=== PATIENT | female | born 1950 | race Caucasian/White ===

== ENCOUNTER 2019-05-14 09:09 | Day surgery (SDC) | payer BC ==
[~2019-05-14 09:09] MED LIST: FAMOTIDINE 20MG TABLET PO ONE; MECLIZINE 25 MG TABLET PO ONE; VANCOMYCIN 1GM/200ML PREMIX 1 GM/200 ML PIGGYBACK IVPB ONE
[2019-05-14] MEDS ORDERED: SEVOFLURANE 250 ML INH ONE (09:10)
[2019-05-14] MEDS ORDERED: FENTANYL PF 100MCG/2ML VIAL IV ONE (09:10)
[2019-05-14] MEDS ORDERED: DEXAMETHASONE 4 MG/ML 1ML VIAL IVP ONE ×2 (09:10)
[2019-05-14] MEDS ORDERED: BUPIVACAINE 0.25% MPF 30ML VIAL IVP ONE (09:10)
[2019-05-14] MEDS ORDERED: MIDAZOLAM HCL 2MG/2ML VIAL IV ONE (09:10)
[2019-05-14] MEDS ORDERED: BUPIVACAINE LIPOSOME/PF 133MG/10ML VIAL IV ONE (09:10)
[2019-05-14] MEDS ORDERED: LIDOCAINE 2% MDV (20MG/ML) 20ML VIAL IV ONE (09:10)
[2019-05-14] MEDS ORDERED: EPHEDRINE SULFATE 50 MG/ML ML IV ONE (09:10)
[2019-05-14] MEDS ORDERED: ONDANSETRON HCL IV 4 MG/2 ML VIAL IVP ONE (09:10)
[2019-05-14] MEDS ORDERED: PROPOFOL 10 MG/ML VIAL IV ONE (09:10)
[2019-05-14] MEDS ORDERED: RINGERS SOLUTION,LACTATED 1,000 ML IV ONE ×2 (09:30→12:10)
[2019-05-14] MEDS: METOCLOPRAMIDE 10 MG TABLET PO ONE ×2 (09:43)
[2019-05-14] MEDS ORDERED: EPINEPHRINE 1 MG/ML AMPUL IM ONE (11:25)
--- NOTE | 2019-05-15 13:40 | Operative Note ---
DATE OF SURGERY: 05/14/2019 PREOPERATIVE DIAGNOSES: 1. Tear of the left rotator cuff. 2. Impingement syndrome left shoulder. POSTOPERATIVE DIAGNOSES: 1. Tear of the left rotator cuff. 2. Impingement syndrome left shoulder. 3. Tear of the glenoid labrum left shoulder. OPERATION: 1. Arthroscopic repair of the left rotator cuff. 2. Arthroscopic subacromial decompression and acromioplasty of the left shoulder. 3. Arthroscopic debridement of the anterior and superior glenoid labrum left shoulder. SURGEON: Mau Kwong D.O. REFERRING PHYSICIAN: Marika Nazario M.D. ANESTHESIA: General. PROCEDURE: This 68-year-old female was taken to the operating room and placed in the supine position on the operating table. General anesthesia was induced. She was then placed in the beach-chair position with all bony prominences well padded and the head well secured. The left shoulder was prepped with Hibiclens and draped in the usual sterile fashion. A posterior portal was established in the glenohumeral joint of the left shoulder. Initial evaluation of the joint demonstrated some significant fraying of the superior and anterior glenoid labrum. An anterior portal was established and this was probed and found not to be detached from the bony glenoid. The rotating shaver and ArthroCare wand were placed in the joint and this was debrided to healthy-appearing tissue. The patient did not demonstrate any degenerative changes of the articular cartilage. The biceps tendon appeared to be normal, although there was some injection at the insertion site, but no evidence of tear. The subscapularis and glenohumeral ligaments appeared to be normal. We did identify an area of the infraspinatus tendon with longitudinal tears in the tendon, which appeared to be full thickness tears. This was marked with a suture and the endoscope was placed in the subacromial space and thorough subacromial decompression and acromioplasty were performed. There was extensive subacromial bursitis in this patient. The marker suture was easily identified and this area was debrided and was found to contain extensive calcium pyrophosphate deposition within the infraspinatus tendon. This had basically eaten a hole in the tendon attachment site and this was thoroughly debrided to healthy-appearing rotator cuff. The tuberosity was debrided and shaved with the rotating shaver to prepare a bed for repair of the rotator cuff. We then decided that this tear could be repaired using an Arthrex SpeedBridge technique, and we placed two 4.75 SwiveLock anchors adjacent to the articular cartilage, one at the anterior and one at the posterior margins of the tear, one containing a FiberTape and the second containing a TigerTape. These sutures were then shuttled through the rotator cuff and a single limb of each one of these sutures was grasped and placed through a 3rd SwiveLock anchor which was 5.5 mm and this was placed inferior to the anterior anchor, thus creating a double row repair. Traction was placed on the suture and the anchor was impaled and similarly the remaining 2 tails of suture were placed through a 4th 5.5 SwiveLock anchor and placed inferior to the posterior anchor. This was then impaled, the repair was seen to be satisfactory and the sutures were cut and the subacromial space irrigated and suctioned and the instruments were removed. The portals were closed with 4-0 nylon suture. Sterile dressings with an UltraSling were applied. The patient was taken to the recovery room in satisfactory condition. GROSS PATHOLOGY: This patient demonstrated a tear of the rotator cuff. There was calcific tendinitis within the infraspinatus tendon, tearing of the superior and anterior glenoid labrum was also identified and marked subacromial bursitis was also noted. [facility] NETWORKJaime
== END 2019-05-14 13:25 | disposition home or self-care (01) ==
LOC: SUR 09:09
PROVIDERS: ATTEND Orthopaedic Surgery
DX: M75.102 Unspecified rotator cuff tear or rupture of left shoulder, not specified as traumatic (principal); M75.42 Impingement syndrome of left shoulder; S43.432A Superior glenoid labrum lesion of left shoulder, initial encounter; I10 Essential (primary) hypertension; F17.210 Nicotine dependence, cigarettes, uncomplicated
CPT/HCPCS: 76942; C9290; J0171; J2405; J3370; J7120

== ENCOUNTER 2019-09-21 01:06 | Emergency (ER) | payer BC ==
--- NOTE | 2019-09-21 01:18 | Emergency Department Record ---
History of Present Illness - General Chief Complaint: Cough Stated Complaint: COLD INTO CHEST Time Seen by Provider: 09/21/19 01:14 Source: Patient Mode of Arrival: Ambulatory Limitations: No limitations - History of Present Illness Initial Comments: The patient is here due to a cough and congestion that seems to be worsening over the last week. She now is coughing up green sputum at times. The patient denies any CP, SOB, LYSSA, or fevers. She did get a flu shot a few weeks ago. MD Complaint: Cough, Nasal congestion, Rhinorrhea Onset/Timin -: Week(s) Severity: Mild - Related Data Home Medications Medication Instructions Recorded Confirmed Last Taken Amlodipine Besylate/Benazepril 1 each PO 09/21/19 Unknown [Amlodipine-Benazepril 5-10 mg] Cholecalciferol (Vitamin D3) unit PO 09/21/19 Unknown [Vitamin D3] Cyanocobalamin (Vitamin B-12) mcg PO DAILY 09/21/19 Unknown [Vitamin B-12] Hydrocodone/Acetaminophen 1 each PO BID 09/21/19 09/21/19 Unknown [Hydrocodone-Acetamin 5-325 mg] Magnesium mg PO DAILY 09/21/19 Unknown [place]-3 Fatty Acids/Fish Oil [Fish 1 each PO 09/21/19 Unknown Oil 1,000 mg Capsule] Omeprazole 40 mg PO DAILY 09/21/19 09/21/19 Unknown Previous Rx's Medication Instructions Recorded Doxycycline Monohydrate [Mondoxyne 100 mg PO BID 7 Days #14 capsule 09/21/19 Nl] Allergies Allergy/AdvReac Type Severity Reaction Status Date / Time amoxicillin Allergy BLISTERS Verified 10/26/14 09:02 clindamycin Allergy ITCHING Verified 10/26/14 09:14 Travel Screening - Travel/Exposure Within Last 30 Days Have you traveled within the last 30 days?: No - Travel Symptoms Symptom Screening: None Review of Systems Constitutional: Reports: Malaise. Denies: Chills, Fever Eyes: Denies: Eye discharge ENT: Reports: Congestion Respiratory: Reports: Cough. Denies: Dyspnea Cardiovascular: Denies: Chest pain Endocrine: Denies: Fatigue Past Medical History - SOCIAL HISTORY Smoking Status: Current every day smoker Alcohol Use: Rare Drug Use: None - RESPIRATORY Hx Respiratory Disorders: Yes Hx Bronchitis: Yes (30 YRS AGO) - CARDIOVASCULAR Hx Cardio Disorders: Yes Hx Edema: Yes (AT TIMES WHEN ON HER FEET A LOT) Hx Hypertension: Yes (ON MEDS WITH GOOD CONTROL) - NEURO Hx Neuro Disorders: Yes Hx Headaches: Yes (FREQUENT NON SEVERE) - GI Hx GI Disorders: Yes Hx Abdominal Pain: Yes (ON OMEPRAZOLE FOR STOMACH PAIN NO GERD) - Hx Genitourinary Disorders: No - ENDOCRINE Hx Endocrine Disorders: No - MUSCULOSKELETAL Hx Musculoskeletal Disorders: Yes Hx Arthritis: Yes (HANDS, BACK) Comment:: LEFT SHOULDER PAIN - PSYCH Hx Psych Problems: No - HEMATOLOGY/ONCOLOGY Hx Hematology/Oncology Disorders: No Family Medical History Any Significant Family History?: Yes Family Hx Comment (NOT TO BE USED IN PLACE OF ITEMS BELOW): arthritis Hx Heart Disease: Mother Physical Exam - General General Appearance: Alert, Oriented x3, Cooperative, No acute distress - Head Head exam: Atraumatic, Normocephalic, Normal inspection - Eye Eye exam: Normal appearance, PERRL, EOMI - ENT ENT exam: TM's normal bilaterally Throat exam: Normal inspection. negative: Tonsillar erythema, Tonsillar exudate - Neck Neck exam: Normal inspection, Full ROM. negative: Lymphadenopathy, Meningismus, Tenderness - Respiratory Respiratory exam: Normal lung sounds bilaterally. negative: Rales, Respiratory distress, Rhonchi, Stridor, Wheezes - Cardiovascular Cardiovascular Exam: Regular rate, Normal rhythm, Normal heart sounds - GI/Abdominal GI/Abdominal exam: Soft, Normal bowel sounds. negative: Tenderness - Extremities Extremities exam: Normal inspection, Full ROM, Normal capillary refill. negative: Tenderness - Neurological Neurological exam: Alert, Normal gait. negative: Abnormal gait, Motor sensory deficit Course Vital Signs 09/21/19 01:12 Temperature 98.0 F Pulse Rate [ 73 Left] Respiratory 18 Rate Blood Pressure 154/88 [Left Arm] Pulse Ox 96 Disposition Disposition: Discharge Clinical Impression: Upper respiratory infection Qualifiers: URI type: unspecified URI Qualified Code(s): J06.9 - Acute upper respiratory infection, unspecified Disposition: Home, Self-Care Condition: (2) Stable Instructions: Acute Bronchitis (ED) Additional Instructions: Please continue the Doxycycline as directed and use an OTC cough and cold medicine as needed. Please see your family doctor if not better in 4-5 days and return to the ER for any worsening symptoms. Prescriptions: Doxycycline Monohydrate [Jeydoxyne Nl] 100 mg PO BID 7 Days #14 capsule Forms: Patient Portal Access Time of Disposition: 01:26 Quality - Quality Measures Quality Measures: N/A - Blood Pressure Screening View Details: Yes Does Patient Have Any of the Following: No Blood Pressure Classification: Pre-Hypertensive BP Reading Systolic Measurement: 154 Diastolic Measurement: 88 Screening for High Blood Pressure: < Pre-Hypertensive BP, F/U Documented > [[id number]] Pre-Hypertensive Follow-up Interventions: Referral to alternative/primary care provider.
[2019-09-21] MEDS ORDERED: DOXYCYCLINE HYCLATE 100 MG CAPSULE PO ONE (01:21)
== END 2019-09-21 01:34 | disposition home or self-care (01) ==
LOC: ER 01:06
DX: J06.9 Acute upper respiratory infection, unspecified (principal); F17.210 Nicotine dependence, cigarettes, uncomplicated; I10 Essential (primary) hypertension
CPT/HCPCS: 99283